=== PATIENT | male | born 1980 | race Caucasian/White ===

== ENCOUNTER 2023-12-09 10:40 | Outpatient (CLI) | payer OTHER, SELFPAY ==
--- NOTE | 2023-12-09 11:00 | CT_ITS ---
Patient: PREM BALDERAS Facility:?[facility] Patient ID:?[id number] Site Patient ID:?[id number]. Site :?[id number] Study:?CT-Sinus WITHOUT-12/09/2023 10:58:08 AM Ordering Physician:?DR. CABRERA Final Report: Indication: CHRONIC SINUSITIS Technique: Performed without IV contrast Comparison: None available Findings: Frontal sinuses: Mucosal thickening is present within the left frontal sinus. The right frontal sinus is clear. Ethmoid sinuses: Mucosal thickening is present within the left ethmoid sinus. Clear right ethmoid sinus. Maxillary sinuses: Mild mucosal thickening within the inferior right maxillary sinus. Mucosal thickening and fluid within the left maxillary sinus resulting in near-complete opacification. Obstruction of the left maxillary sinus drainage pathway noted. Narrowing of the right ostiomeatal complex. Sphenoid sinuses: Mucosal thickening is present within the sphenoid sinuses with partial obstruction of the sphenoethmoidal recesses. Mucous within the lateral aspect of the sphenoid sinuses noted particularly on the left. Nasal Cavity: Rightward curvature of the nasal septum is present. No idalia bullosa. Mucous is present within the left side of the nasopharynx. No TMJ abnormalities identified. The visualized portions of the orbits, intracranial contents and upper soft tissue neck are grossly negative. Impression: 1. Bilateral sinus disease with obstruction/partial obstruction of the sinus drainage pathways. 2. Rightward curvature of the nasal septum. Please note that all CT scans at this facility use dose modulation, iterative reconstruction, and/or weight-based dosing when appropriate to reduce radiation dose to as low as reasonably achievable. Dictated by Sony Bryant MD @ 12/09/2023 12:43:35 PM Signed by:?Sony Bryant MD @12/09/2023 12:43:35 PM (Electronic Signature)
== END 2023-12-09 10:41 | disposition home or self-care (01) ==
LOC: CT 10:41
PROVIDERS: PCP Family Medicine; Visit Provider Family Medicine
DX: J32.9 Chronic sinusitis, unspecified (principal); J34.89 Other specified disorders of nose and nasal sinuses; J34.2 Deviated nasal septum
CPT/HCPCS: 70486

== ENCOUNTER 2024-02-17 10:33 | Outpatient (CLI) | payer OTHER, SELFPAY | END 2024-02-17 10:34 | disposition home or self-care (01) | LOC: FBOREF 10:34 | PROVIDERS: PCP Family Medicine; Visit Provider Family Medicine | DX: Z01.818 Encounter for other preprocedural examination (principal) | CPT/HCPCS: 80048; 85025 ==

== ENCOUNTER 2024-02-19 06:08 | Day surgery (SDC) | payer OTHER, SELFPAY ==
[2024-02-19] VITALS (13 sets, daily range): BP systolic 108–139; BP diastolic 70–93; PULSE 56–68; RESP 16–19; TEMP 36.3–36.7; O2SAT 94–100; BMI 26.8
[2024-02-19] MEDS: LACTATED RINGERS 1000 ML 1,000 ML 100 ML IV (06:10)
[2024-02-19] MEDS: SODIUM CHLORIDE 0.9 % (FLUSH) 10 ML SYRINGE IVF (06:27)
[2024-02-19] MEDS: BUPIVACAINE 0.5%/EPINEPHRINE 0.9 MG (30.9 ML) INJECTION (07:00)
[2024-02-19] MEDS: OXYMETAZOLINE 0.05% NASAL SPRAY 2 SPRAY NOSTRIL-B (07:08)
--- NOTE | 2024-02-19 08:25 | W.ANESCHARGE ---
Anesthesia Charges Start Date/Time Anesthesia Start Date: 02/19/24 Anesthesia Start Time: 07:41 Stop Date/Time Anesthesia Stop Date: 02/19/24 Anesthesia Stop Time: 08:25
[2024-02-19] MEDS: fentaNYL 100 MCG/2 ML inj 50 MCG IVP ×2 (08:27→08:39)
--- NOTE | 2024-02-19 08:28 | W.ANESCHARGE ---
Anesthesia Charges Start Date/Time Anesthesia Start Date: 02/19/24 Anesthesia Start Time: 07:41 Stop Date/Time Anesthesia Stop Date: 02/19/24 Anesthesia Stop Time: 08:25
[2024-02-19] MEDS: ACETAMINOPHEN 325 MG TABLET PO (09:06)
[2024-02-19] MEDS: IBUPROFEN 200 MG TABLET PO (09:06)
--- NOTE | 2024-02-19 09:31 | W.PM.ENTPROC ---
Procedure Note Date of procedure: 02/19/24 Procedure: Preop diagnosis left maxillary and ethmoid chronic rhinosinusitis, Postoperative diagnosis same Procedure endoscopic left maxillary antrostomy and complete ethmoidectomy utilizing image guidance and 0 degree endoscopy Under general trach anesthesia patient was prepped and draped usual fashion in the image guidance system registered. The nose was decongested and injected. The inferior 3rd of the uncinate process was taken down exposing natural ostium to maxillary sinus. This was occluded by polypoid tissue which was then removed with an up-biting ethmoid forceps. A 1 cm antrostomy was created. A large amount of polypoid tissue was removed from the floor of the sinus as well as some inspissated mucus. The ethmoid bulla was taken down and dissection carried out an anterior to posterior direction removing a moderate to large amount of polypoid tissue. Some purulence was also noted. This was aspirated. Merocel pack coated in Bactroban was placed in the middle meatus. The patient procedure well was taken recovery in satisfactory condition. Blood loss was 5 mL. Surgeon: Arun Cobian MD
== END 2024-02-19 10:08 | disposition home or self-care (01) ==
LOC: OR 06:09
PROVIDERS: PCP Family Medicine; Visit Provider Otolaryngology
PROC: (CPT 31231; principal; 2024-02-19 07:30)
DX: J32.0 Chronic maxillary sinusitis (principal); J32.2 Chronic ethmoidal sinusitis; J33.8 Other polyp of sinus
CPT/HCPCS: 31267; 31255; 00160; 88305; A9270; J0330; J1100; J1630; J2250; J2405; J2704; J3010; J7120

== ENCOUNTER 2024-04-12 10:48 | Outpatient (CLI) | payer OTHER, SELFPAY | END 2024-04-12 10:49 | disposition home or self-care (01) | LOC: LKVREF 10:48 | PROVIDERS: PCP Family Medicine; Visit Provider Otolaryngology | DX: J32.0 Chronic maxillary sinusitis (principal) | CPT/HCPCS: 87070 ==

== ENCOUNTER 2024-08-02 13:38 | Outpatient (CLI) | payer OTHER, SELFPAY | END 2024-08-02 13:39 | disposition home or self-care (01) | LOC: FBOREF 13:40 | PROVIDERS: PCP Family Medicine; Visit Provider Family Medicine | DX: Z13.6 Encounter for screening for cardiovascular disorders (principal) | CPT/HCPCS: 80061 ==